=== PATIENT | female | born 1985 | race African-American/Black ===

== ENCOUNTER 2018-03-11 18:19 | Emergency (ER) | payer OTHER, SELFPAY ==
[2018-03-11 18:19] VITALS: BP 153/86; PULSE 82; RESP 20; O2SAT 100
[2018-03-11 18:20] VITALS: BP 144/90; PULSE 105; RESP 16; TEMP 36.9; O2SAT 97; BMI 50.2
[2018-03-11 19:19] VITALS: O2SAT 100
--- NOTE | 2018-03-11 19:19 | EKG12_ITS ---
Test Reason : CP Blood Pressure : / mmHG Vent. Rate : 103 BPM Atrial Rate : 103 BPM P-R Int : 142 ms QRS Dur : 072 ms QT Int : 316 ms P-R-T Axes : 061 065 033 degrees QTc Int : 413 ms Sinus tachycardia Otherwise normal ECG Confirmed by MIGUELINA ARANDA, KARINA ([id number]), features editor BRITANY MIRANDA ([id number]) on 03/13/2018 3:25:21 PM Referred By: Confirmed By:KARINA MCINTYRE MD
--- NOTE | 2018-03-11 19:25 | RAD_ITS ---
STUDY: X-RAY CHEST REASON FOR EXAM: Female, 32 years old. Chest pain for 2 weeks. TECHNIQUE: Single AP portable view of the chest. COMPARISON: None. FINDINGS: The lungs are clear and expanded. There is no demonstrated pleural abnormality. Normal size heart. Normal mediastinum and suzy. Normal visualized pulmonary arteries. Normal visualized aortic arch and descending thoracic aorta. Normal visualized thoracic spine. Normal visualized ribs, clavicles, and shoulders. There is no demonstrated abnormality of the visualized soft tissue structures of the upper abdomen. RAD/Chest 1 View (Portable) IMPRESSION: No acute cardiopulmonary disease. Electronically Signed: Gigi Gutierres DO at 19:44 EST Tel [phone], Service support ,
--- NOTE | 2018-03-11 19:29 | ED.RN ---
NO OLD EKGS IN MUSE
[2018-03-11 19:45] LABS: Absolute Lymphocyte Count 3.28 X10^3/ul (0.83-4.51); Absolute Neutrophil Count 6.7 X10^3/uL (2.0-7.7); Basophil# 0.03 X10^3/uL; Basophil% 0.3 % (0-1); Eosinophil# 0.18 X10^3/uL; Eosinophils% 1.7 % (0-5); Lymphocyte # 3.28 X10^3/ul (4.0); Lymphocyte % 30.2 % (19-41); Mean Corp Hgb Conc 31.4 g/gl (32-36); Mean Corpuscular Hgb 24.6 pg (27.0-32.0); Mean Corpuscular Volume 78.1 fL (81-99); Mean Platelet Vol. 8.8 fl (6.2-12.0); Monocyte# 0.68 X10^3/uL; Monocyte% 6.3 % (0-10); Neutrophil # 6.68 X10^3/uL (2.7-7.7); Neutrophil % 61.3 % (47-70); Platelet Count 385 K/mm3 (150-450); RBC Distribution Width CV 14.9 % (11.6-14.6); RBC Distribution Width SD 42.3 fl (35.1-43.9); Red Blood Count 4.48 M/mm3 (4.2-5.4); White Blood Count 10.9 K/mm3 (4.4-11.0)
[2018-03-11 19:54] LABS: POSITIVE COUNT NO; POSITIVE DIFFERENTIAL NO; POSITIVE MORPHOLOGY NO
[2018-03-11 20:08] LABS: Anion Gap 8 (5-15); BUN 11 mg/dL (7-18); BUN/Creat Ratio 15.4 RATIO (10-20); Calcium,Total 8.6 mg/dL (8.5-10.1); Chloride 107 mmol/L (98-107); Creatinine, Serum 0.71 mg/dL (0.55-1.02); EST Glomerular Filtration Rate 100 mL/min (>60); Est Glom Filt Rate - Afr Amer 121 mL/min (>60); Estimated Creatinine Clearance 100.46 ml/min; Glucose 86 mg/dL (74-106); Sodium Level 141 mmol/L (136-145)
[2018-03-11 20:43] VITALS: BP 158/91; PULSE 92; RESP 23; O2SAT 100
--- NOTE | 2018-03-11 21:17 | ED.VISSUMM ---
- ER Visit Summary Date of Service: 03/11/18 Chief Complaint: Chest pain History of Present Illness: The patient is a 32 F who presents for almost 2 weeks of chest pain. Patient states it is a continuous pressure in the left substernal region that will radiate into her left arm. It is been constant. She will have an occasional palpitation where she feels like her heart skips a beat and takes her breath away. She has chronic nausea. She has no alleviating or exacerbating factors for her chest pressure. It is currently a 4 out of 10. She denies fever, abdominal pain, vomiting, diarrhea, back pain, headache, or other complaints. She does not have hypertension or diabetes. She is an occasional smoker. She has history of asthma and anxiety. Physical Examination: Vital signs: afebrile, hemodynamically stable, no hypoxia on room air General: well nourished, well developed, in no distress Skin: warm, dry, no rash, no pallor HEENT: normocephalic and atraumatic; PERRL, EOMI, moist mucous membranes Cardiovascular: Tachycardic rate and rhythm without murmurs, no peripheral edema, 2+ pulses all distal extremities Respiratory: No increased work of breathing, lungs are clear to auscultation bilaterally, no rales, rhonchi or wheezing Abdominal: Abdomen is soft, nontender with normoactive bowel sounds, no guarding or rebound, no masses MSK: Moves all extremities, no deformities, normal strength Neuro: Awake and alert, oriented ?4. No facial droop, sensation and motor function intact and symmetric Test Results: Abnormal Lab Results 03/11/18 03/11/18 19:25 19:25 WBC 10.9 RBC 4.48 Hgb 11.0 L Hct 35.0 L MCV 78.1 L MCH 24.6 L MCHC 31.4 L RDW 14.9 H RDW Differential 42.3 Plt Count 385 MPV 8.8 Immature Gran % (Auto) 0.200 Neut % (Auto) 61.3 Lymph % (Auto) 30.2 [place] % (Auto) 6.3 Eos % (Auto) 1.7 Baso % (Auto) 0.3 Absolute Neuts (auto) 6.7 Absolute Lymphs (auto) 3.28 Total Counted Not Reportable Sodium 141 Potassium 4.0 Chloride 107 Carbon Dioxide 26.0 Anion Gap 8 BUN 11 Creatinine 0.71 Estim Creat Clear Calc 100.46 Est GFR (MDRD) Af Amer 121 Est GFR (MDRD) Non-Af 100 BUN/Creatinine Ratio 15.4 Glucose 86 Calcium 8.6 Troponin I < 0.015 Clinical Impression(s) from Imaging Studies Chest X-Ray 03/11/18 19:25 IMPRESSION: No acute cardiopulmonary disease. Electronically Signed: Gigi PetersonDO at 19:44 EST Tel [phone], Service support , Medications Given Discontinued Medications Ketorolac Tromethamine (Toradol) 15 mg IV X1 ONE Stop: 03/11/18 21:17 Emergency Department Course and Treatment: Patient had an EKG showing a sinus tachycardia with no ischemic changes. Troponin negative. If patient's chest pressure was due to acute coronary syndrome, and elevated troponin would be expected since her symptoms have been present for 2 weeks without any relief. Patient is tachycardic and an occasional smoker. The persistent chest pressure with associated shortness of breath does make pulmonary embolism on the differential. Patient did not have any recent travel or surgery and has no history of DVT. However she is PERC positive due to her heart rate. Thus a d-dimer was checked. Patient was given Toradol for her chest discomfort. Dimer was within normal limits and thus PE was ruled out. Patient had improvement of her pain with the Toradol. She will follow-up with her doctor if she continues to have this discomfort. Agreed with plan and was discharged home in improved condition. Treatment Plan: [] Disposition: [] Impression: Chest pain, nonspecific This note was generated with [employer] dictation software. It may contain incorrect words, spelling, and punctuation that were not noted in review of the chart prior to signing ED Disposition - Plan for ED Patient: Disposition: Home or Assisted Living Chief Complaint: Chest Pain Instructions: ED Chest Pain Atypical Unkn Cause Referrals: Sven Mcdonnell DO [Primary Care Provider] - 3-5 Days if not improving Additional Instructions: Use [id number] pain medication such as Tylenol, ibuprofen or naproxen as needed for pain. Follow-up with your doctor for further evaluation if you continue to have this chest pressure. If you have any worsening of your condition or any new concerning symptoms, please return immediately to the emergency department for another evaluation.
--- NOTE | 2018-03-11 21:20 | ED.DCSUM_ITS ---
- ER Visit Summary Date of Service: 03/11/18 Chief Complaint: Chest pain History of Present Illness: The patient is a 32 F who presents for almost 2 weeks of chest pain. Patient states it is a continuous pressure in the left substernal region that will radiate into her left arm. It is been constant. She will have an occasional palpitation where she feels like her heart skips a beat and takes her breath away. She has chronic nausea. She has no alleviating or exacerbating factors for her chest pressure. It is currently a 4 out of 10. She denies fever, abdominal pain, vomiting, diarrhea, back pain, headache, or other complaints. She does not have hypertension or diabetes. She is an occasional smoker. She has history of asthma and anxiety. Physical Examination: Vital signs: afebrile, hemodynamically stable, no hypoxia on room air General: well nourished, well developed, in no distress Skin: warm, dry, no rash, no pallor HEENT: normocephalic and atraumatic; PERRL, EOMI, moist mucous membranes Cardiovascular: Tachycardic rate and rhythm without murmurs, no peripheral edema, 2+ pulses all distal extremities Respiratory: No increased work of breathing, lungs are clear to auscultation bilaterally, no rales, rhonchi or wheezing Abdominal: Abdomen is soft, nontender with normoactive bowel sounds, no guarding or rebound, no masses MSK: Moves all extremities, no deformities, normal strength Neuro: Awake and alert, oriented ?4. No facial droop, sensation and motor f unction intact and symmetric Test Results: Abnormal Lab Results 03/11/18 03/11/18 19:25 19:25 WBC 10.9 RBC 4.48 Hgb 11.0 L Hct 35.0 L MCV 78.1 L MCH 24.6 L MCHC 31.4 L RDW 14.9 H RDW Differential 42.3 Plt Count 385 MPV 8.8 Immature Gran % (Auto) 0.200 Neut % (Auto) 61.3 Lymph % (Auto) 30.2 [place] % (Auto) 6.3 Eos % (Auto) 1.7 Baso % (Auto) 0.3 Absolute Neuts (auto) 6.7 Absolute Lymphs (auto) 3.28 Total Counted Not Reportable Sodium 141 Potassium 4.0 Chloride 107 Carbon Dioxide 26.0 Anion Gap 8 BUN 11 Creatinine 0.71 Estim Creat Clear Calc 100.46 Est GFR (MDRD) Af Amer 121 Est GFR (MDRD) Non-Af 100 BUN/Creatinine Ratio 15.4 Glucose 86 Calcium 8.6 Troponin I < 0.015 Clinical Impression(s) from Imaging Studies Chest X-Ray 03/11/18 19:25 IMPRESSION: No acute cardiopulmonary disease. Electronically Signed: Gigi Gutierres DO at 19:44 EST Tel [phone], Service support , Medications Given Discontinued Medications Ketorolac Tromethamine (Toradol) 15 mg IV X1 ONE Stop: 03/11/18 21:17 Emergency Department Course and Treatment: Patient had an EKG showing a sinus tachycardia with no ischemic changes. Troponin negative. If patient's chest pressure was due to acute coronary syndrome, and elevated troponin would be expected since her symptoms have been present for 2 weeks without any relief. Patient is tachycardic and an occasional smoker. The persistent chest pressure with associated shortness of breath does make pulmonary embolism on the differential. Patient did not have any recent travel or surgery and has no history of DVT. However she is PERC positive due to her heart rate. Thus a d- dimer was checked. Patient was given Toradol for her chest discomfort. Dimer was within normal limits and thus PE was ruled out. Patient had improvement of her pain with the Toradol. She will follow-up with her doctor if she continues to have this discomfort. Agreed with plan and was discharged home in improved condition. Treatment Plan: [] Disposition: [] Impression: Chest pain, nonspecific This note was generated with [employer] dictation software. It may contain incorrect words, spelling, and punctuation that were not noted in review of the chart prior to signing ED Disposition - Plan for ED Patient: Disposition: Home or Assisted Living Chief Complaint: Chest Pain Instructions: ED Chest Pain Atypical Unkn Cause Referrals: Sven Mcdonnell DO [Primary Care Provider] - 3-5 Days if not improving Additional Instructions: Use [id number] pain medication such as Tylenol, ibuprofen or naproxen as needed for pain. Follow-up with your doctor for further evaluation if you continue to have this chest pressure. If you have any worsening of your condition or any new concerning symptoms, please return immediately to the emergency department for another evaluation.
[2018-03-11 21:36] LABS: D-Dimer Quantitative (DVT/PE) 0.45 FEU/ug/m (0.27-0.49)
[2018-03-11 22:04] VITALS: BP 117/74; PULSE 90; RESP 20; O2SAT 100
[2018-03-11] MEDS: Ketorolac 15 MG/ML Vial IV (22:06)
--- NOTE | 2018-03-11 22:58 | ED.DEP ---
ED Disposition - Plan for ED Patient: Disposition: Home or Assisted Living Chief Complaint: Chest Pain Instructions: ED Chest Pain Atypical Unkn Cause Referrals: Sven Mcdonnell DO [Primary Care Provider] - 3-5 Days if not improving Additional Instructions: Use [id number] pain medication such as Tylenol, ibuprofen or naproxen as needed for pain. Follow-up with your doctor for further evaluation if you continue to have this chest pressure. If you have any worsening of your condition or any new concerning symptoms, please return immediately to the emergency department for another evaluation.
[2018-03-11 23:07] VITALS: BP 127/76; PULSE 82; RESP 16; O2SAT 97
== END 2018-03-11 23:08 | disposition home or self-care (01) ==
PROVIDERS: Emergency Provider Emergency Medicine; Family Provider Preventive Medicine Occupational Medicine; PCP Preventive Medicine Occupational Medicine
DX: R07.89 Other chest pain (principal); R06.00 Dyspnea, unspecified; R11.0 Nausea; R00.2 Palpitations; J45.909 Unspecified asthma, uncomplicated; F41.9 Anxiety disorder, unspecified; Z72.0 Tobacco use
CPT/HCPCS: 71045; 80048; 84484; 85025; 85379; 93005; 96374; 99285; A4216

== ENCOUNTER → 2021-09-12 | Outpatient (CLI) | payer BC, SELFPAY | END | disposition home or self-care (01) | PROVIDERS: PCP Preventive Medicine Occupational Medicine; Visit Provider Otolaryngology | DX: J32.9 Chronic sinusitis, unspecified (principal) | CPT/HCPCS: 87070; 87205 ==